=== PATIENT | female | born 2000 | race Hispanic/Latino ===

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

== ENCOUNTER 2022-04-22 23:36 | Emergency (ER) | payer OTHER | END 2022-04-23 00:54 | disposition home or self-care (01) | LOC: ERS 23:36 | DX: H60.12 Cellulitis of left external ear (principal) | CPT/HCPCS: 99283 ==

== ENCOUNTER 2022-05-02 21:54 | Emergency (ER) | payer OTHER | END 2022-05-02 22:35 | disposition home or self-care (01) | LOC: ERS 21:54 | DX: L60.0 Ingrowing nail (principal) | CPT/HCPCS: 99283 ==

== ENCOUNTER 2022-12-29 14:57 | Emergency (ER) | payer OTHER ==
[2022-12-29] MEDS ORDERED: Acetaminophen 500 MG TAB ONE (15:42)
[2022-12-29] MEDS ORDERED: Ibuprofen 800 MG TAB ONE (15:42)
[2022-12-29 16:40] LABS: SARS-CoV-2 NAA Rapid Test DETECTED (NotDetected)
[2022-12-29 16:43] LABS: Bilirubin Negative (Negative); Blood, Urine Negative (Negative); Clarity Clear (Clear); Glucose, Urine (Dipstick) Normal (Negative); Ketone, Urine Negative (Negative); Leukocyte Negative Leu/uL (Negative); Nitrite Negative (Negative); Protein, Urine (Dipstick) Negative (Neg-Trace); Specific Gravity, Urine 1.005 (1.002-1.036); Urobilinogen Normal mg/dL (Less than 2); pH, Urine 6.5 (5.0-9.0)
[2022-12-29 16:46] LABS: Pregnancy Test - Urine (BHCG) Negative (Negative); Pregu Control Background? CLEAR/WHITE (CLR/WHITE); Pregu Control Bar Appear? YES (CONTROL BAR); Specific Gravity 1.005 (1.002-1.036)
== END 2022-12-29 16:58 | disposition home or self-care (01) ==
LOC: ERS 14:57
DX: U07.1 COVID-19 (principal)
CPT/HCPCS: 81003; 81025; 99283

== ENCOUNTER 2023-05-15 18:33 | Emergency (ER) | payer OTHER ==
[2023-05-15] MEDS ORDERED: Lidocaine 4% Cream 5 GM TUBE w/ Tegaderm ONE (20:17)
== END 2023-05-15 20:27 | disposition home or self-care (01) ==
LOC: ERS 18:33
DX: S30.814A Abrasion of vagina and vulva, initial encounter (principal); Y93.E1 Activity, personal bathing and showering

== ENCOUNTER 2024-11-13 19:25 | Emergency (ER) | payer BC ==
[2024-11-13 20:11] LABS: #Basophils 0.03 10x3/uL (0.0-0.2); %Basophils 0.2 % (0.0-1.0); %Eosinophils 0.8 % (0.0-10.0); %Lymphocytes 7.3 % (21.0-51.0); %Monocytes 4.9 % (0.0-10.0); %Neutrophils 86.5 % (42.0-75.0); Hematocrit 39.5 % (36.0-47.0); Hemoglobin 12.4 g/dL (12.0-16.0); Mean Corpuscular HGB CONC 31.4 g/dL (32.0-36.0); Mean Corpuscular Hemoglobin 23.5 pg (27.0-31.0); Mean Corpuscular Volume 74.8 fL (78.0-98.0); Mean Platelet Volume 9.8 fL (7.4-10.4); Platelet Count 381 10x3/uL (130-400); RBC Distribution Width 16.1 % (11.5-14.5); Red Blood Cell (RBC) Count 5.28 mill/uL (4.20-5.40)
[2024-11-13] MEDS ORDERED: Ondansetron ODT 4 MG TAB ONE (20:12)
[2024-11-13 20:30] LABS: ALT (SGPT) 16 U/L (8-55); AST (SGOT) 13 U/L (5-34); Albumin 4.1 g/dL (3.5-5.0); Alkaline Phosphatase 112 U/L (40-110); Anion Gap 14 mmol/L (10-20); BUN (Urea Nitrogen) 9 mg/dL (7.0-18.7); Bilirubin, Total 0.9 mg/dL (0.2-1.2); Calc. Creatinine Clearance 0 mL/min (70-130); Calcium 8.7 mg/dL (7.8-10.44); Carbon Dioxide 20 mmol/L (22-29); Chloride 109 mmol/L (98-107); Estimated GFR 111; Globulin 3.4 g/dL (2.4-3.5); Glucose 101 mg/dL (70-105); Lipase 15 U/L (8-78); Potassium 3.7 mmol/L (3.5-5.1); Protein, Total 7.5 g/dL (6.0-8.3); Sodium 139 mmol/L (136-145)
[2024-11-13] MEDS ORDERED: Mag-Al 1200 mg/1200 mg/30 ML UDCUP ONE (20:30)
[2024-11-13] MEDS ORDERED: Lidocaine Viscous Sol 2% 15 ml UD Cup ONE (20:32)
[2024-11-13 20:40] LABS: Bilirubin Negative (Negative); Blood, Urine Negative (Negative); CAUTI Indications for Culture Pelvic or flank pain; Clarity Turbid (Clear); Glucose, Urine (Dipstick) Normal (Negative); Ketone, Urine 10 mg/dL (Negative); Leukocyte 500 Leu/uL (Negative); Nitrite Negative (Negative); Protein, Urine (Dipstick) 10 mg/dL (Neg-Trace); Specific Gravity, Urine 1.027 (1.002-1.036); Urobilinogen Normal mg/dL (Less than 2); pH, Urine 5.5 (5.0-9.0)
[2024-11-13 20:43] LABS: Pregnancy Test - Urine (BHCG) Negative (Negative); Pregu Control Background? CLEAR/WHITE (CLR/WHITE); Pregu Control Bar Appear? YES (CONTROL BAR); Specific Gravity 1.027 (1.002-1.036)
[2024-11-13 21:02] LABS: RBC/HPF 0-3 HPF (0-3); Yeast-Budding Rare HPF (None Seen); Yeast-Hyphae Rare HPF (None Seen)
[2024-11-13 21:03] LABS: Bacteria/HPF 2+ HPF (None Seen)
[2024-11-13 21:05] LABS: Urine Culture Reflex No No
== END 2024-11-13 21:37 | disposition home or self-care (01) ==
LOC: ERS 19:25
DX: R11.2 Nausea with vomiting, unspecified (principal); E86.0 Dehydration; N39.0 Urinary tract infection, site not specified
CPT/HCPCS: 36415; 80053; 81001; 81025; 83690; 85025; 87428; 99283; Q0162